=== PATIENT | male | born 1950 | race Caucasian/White ===

== ENCOUNTER 2017-10-22 15:04 | Emergency (ER) | payer OTHER ==
[~2017-10-22] VITALS: Ht 182.9 cm; Wt 109.3 kg
[2017-10-22] MEDS ORDERED: EXFORGE 5-3201 EACH (15:37)
[2017-10-22] MEDS ORDERED: BYSTOLIC10 MG (15:38)
== END 2017-10-23 08:41 | disposition home or self-care (01) ==
LOC: ER 15:04
DX: E11.00 Type 2 diabetes mellitus with hyperosmolarity without nonketotic hyperglycemic-hyperosmolar coma (NKHHC) (principal); E87.1 Hypo-osmolality and hyponatremia

== ENCOUNTER 2017-11-05 11:24 | Emergency (ER) | payer OTHER ==
[~2017-11-05] VITALS: Ht 182.9 cm; Wt 107.0 kg
[~2017-11-05 11:24] MED LIST: BYSTOLIC10 MG; EXFORGE 5-3201 EACH
[2017-11-05] MEDS ORDERED: DESIPRAMINE HCL50 MG (11:39)
[2017-11-05] MEDS ORDERED: ARICEPT10 MG (11:39)
[2017-11-05] MEDS ORDERED: JANUMET XR 1001 EACH (11:39)
[2017-11-05] MEDS ORDERED: LIPITOR20 MG (11:39)
[2017-11-05] MEDS ORDERED: METFORMIN HCL500 MG (11:40)
[2017-11-05] MEDS ORDERED: IRBESARTAN300 MG (11:40)
== END 2017-11-05 19:04 | disposition home or self-care (01) ==
LOC: ER 11:24
DX: E11.65 Type 2 diabetes mellitus with hyperglycemia (principal)

== ENCOUNTER 2018-06-23 08:37 | Emergency (ER) | payer OTHER ==
[~2018-06-23] VITALS: Ht 182.9 cm; Wt 127.0 kg
[~2018-06-23 08:37] MED LIST changes: +ARICEPT10 MG; +DESIPRAMINE HCL50 MG; +IRBESARTAN300 MG; +JANUMET XR 1001 EACH; +LIPITOR20 MG; +METFORMIN HCL500 MG
[2018-06-23] MEDS ORDERED: JANUMET 50-1,01 EACH PO (08:54)
== END 2018-06-23 11:58 | disposition home or self-care (01) ==
LOC: ER 08:37
DX: J06.9 Acute upper respiratory infection, unspecified (principal)

== ENCOUNTER 2019-03-23 20:35 | Emergency (ER) | payer OTHER ==
[~2019-03-23] VITALS: Ht 182.9 cm; Wt 122.5 kg
[~2019-03-23 20:35] MED LIST changes: +JANUMET 50-1,01 EACH PO
[2019-03-23] MEDS ORDERED: DOXAZOSIN MESYLA2 MG (20:56)
== END 2019-03-23 23:28 | disposition home or self-care (01) ==
LOC: ER 20:35
DX: R19.7 Diarrhea, unspecified (principal)

== ENCOUNTER 2020-03-23 20:44 | Emergency (ER) | payer OTHER ==
[~2020-03-23] VITALS: Ht 182.9 cm; Wt 124.7 kg
[~2020-03-23 20:44] MED LIST changes: +DOXAZOSIN MESYLA2 MG
== END 2020-03-24 00:02 | disposition home or self-care (01) ==
LOC: ER 20:44
DX: K52.9 Noninfective gastroenteritis and colitis, unspecified (principal); B34.9 Viral infection, unspecified; E86.0 Dehydration

== ENCOUNTER 2022-06-26 11:36 | Emergency (ER) | payer OTHER ==
[~2022-06-26] VITALS: Ht 182.9 cm; Wt 130.6 kg
[2022-06-26] MEDS ORDERED: OZEMPIC1 MG/0.71 SQ (11:47)
[2022-06-26] MEDS ORDERED: HUMALOG100 UNIT/2 (11:48)
[2022-06-26] MEDS ORDERED: AMLODIPINE-OLM1 EAC2 PO (11:48)
[2022-06-26] MEDS ORDERED: ATORVASTATIN CA20 MG PO (11:48)
[2022-06-26] MEDS ORDERED: LANTUS SOL100 UNIT/1 (11:48)
[2022-06-26] MEDS ORDERED: NORPRAMIN10 MG PO (11:49)
[2022-06-26] MEDS ORDERED: DOXAZOSIN MESYLA2 MG PO (11:49)
[2022-06-26] MEDS ORDERED: BYSTOLIC10 MG PO (11:49)
[2022-06-26] MEDS ORDERED: ARICEPT10 MG PO (11:49)
[2022-06-26] MEDS ORDERED: MOMETASONE FURO15 G2 TOP (14:11)
[2022-06-26] MEDS ORDERED: AMOX-CLAV 875-1 EACH PO (14:11)
== END 2022-06-26 14:32 | disposition home or self-care (01) ==
LOC: ER 11:36
DX: R21 Rash and other nonspecific skin eruption (principal); E11.9 Type 2 diabetes mellitus without complications; Z79.84 Long term (current) use of oral hypoglycemic drugs; I10 Essential (primary) hypertension; Z88.2 Allergy status to sulfonamides

== ENCOUNTER 2022-08-24 18:31 | Emergency (ER) | payer OTHER ==
[~2022-08-24] VITALS: Ht 188 cm; Wt 124.7 kg
[~2022-08-24 18:31] MED LIST changes: +AMLODIPINE-OLM1 EAC2 PO; +AMOX-CLAV 875-1 EACH PO; +ARICEPT10 MG PO; +ATORVASTATIN CA20 MG PO; +BYSTOLIC10 MG PO; +DOXAZOSIN MESYLA2 MG PO; +HUMALOG100 UNIT/2; +LANTUS SOL100 UNIT/1; +MOMETASONE FURO15 G2 TOP; +NORPRAMIN10 MG PO; +OZEMPIC1 MG/0.71 SQ
== END 2022-08-24 23:43 | disposition home or self-care (01) ==
LOC: ER 18:31
DX: M51.37 Other intervertebral disc degeneration, lumbosacral region (principal); M47.897 Other spondylosis, lumbosacral region; Z88.2 Allergy status to sulfonamides

== ENCOUNTER 2023-06-28 09:53 | Emergency (ER) | payer OTHER ==
[~2023-06-28] VITALS: Ht 182.9 cm; Wt 131.5 kg
== END 2023-06-28 14:00 | disposition home or self-care (01) ==
LOC: ER 09:53
DX: U07.1 COVID-19 (principal); Z88.2 Allergy status to sulfonamides

== ENCOUNTER 2023-07-24 08:17 | Emergency (ER) | payer OTHER ==
[~2023-07-24] VITALS: Ht 182.9 cm; Wt 132.4 kg
== END 2023-07-24 09:37 | disposition home or self-care (01) ==
LOC: ER 08:18
DX: I88.9 Nonspecific lymphadenitis, unspecified (principal); Z88.2 Allergy status to sulfonamides; E11.9 Type 2 diabetes mellitus without complications; Z79.84 Long term (current) use of oral hypoglycemic drugs; I10 Essential (primary) hypertension

== ENCOUNTER 2023-10-03 09:28 | Emergency (ER) | payer OTHER ==
[~2023-10-03] VITALS: Ht 182.9 cm; Wt 132.4 kg
[2023-10-03] MEDS ORDERED: FARXIGA10 MG PO (09:40)
[2023-10-03] MEDS ORDERED: GABAPENTIN300 M2 PO (09:40)
[2023-10-03] MEDS ORDERED: BENZONATATE 100 MG CAPSULE PO ONE (10:15)
[2023-10-03] MEDS ORDERED: GUAIFENESIN 200 MG/10 ML BLIST.PACK PO SCH (10:15)
[2023-10-03] MEDS ORDERED: DEXAMETHASONE SODIUM PHOSPHATE 4 MG/ML VIAL IM ONE (10:15)
[2023-10-03 11:05] LABS: HEMATOCRIT 47.1 % (39.0-48.0); HEMOGLOBIN 15.8 g/dL (13-16.00); MEAN CELL VOLUME 85.3 fL (80.0-100.00); MEAN CORPUSCULAR HEMOGLOBIN 28.7 pg (27.00-32.0); MEAN CORPUSCULAR HGB CONC 33.7 g/dl (32.0-36.0); PLATELET COUNT 241 K/uL (150-450); RED BLOOD COUNT 5.52 M/uL (4.00-6.00); RED CELL DISTRIBUTION WIDTH 14.4 % (11.5-14.5)
== END 2023-10-03 12:18 | disposition home or self-care (01) ==
LOC: ER 09:28
PROVIDERS: General Practice
DX: R53.81 Other malaise (principal); J32.9 Chronic sinusitis, unspecified; Z20.822 Contact with and (suspected) exposure to COVID-19; I10 Essential (primary) hypertension; E11.9 Type 2 diabetes mellitus without complications; Z79.4 Long term (current) use of insulin; Z88.2 Allergy status to sulfonamides
CPT/HCPCS: 36415; 96372; 99282; J1100

== ENCOUNTER → 2024-07-28 | Emergency (ER) | payer OTHER ==
[~2024-07-28] MED LIST changes: +FARXIGA10 MG PO; +GABAPENTIN300 M2 PO
== END | disposition left against medical advice (07) ==
LOC: ER 11:27
DX: Z53.21 Procedure and treatment not carried out due to patient leaving prior to being seen by health care provider (principal)

== ENCOUNTER 2024-08-01 10:43 | Outpatient (CLI) | payer OTHER | END 2024-08-01 10:44 | disposition home or self-care (01) | LOC: NUCLEAR 10:43 | PROVIDERS: ATTEND Internal Medicine | DX: R06.09 Other forms of dyspnea (principal) ==